=== PATIENT | male | born 1970 | race American Indian/Alaskan Native ===

== ENCOUNTER 2017-10-21 12:58 | Emergency (ER) | payer MEDICAID ==
[2017-10-21 13:36] VITALS: BMI 30.7
[2017-10-21 13:57] VITALS: BP 135/78
--- NOTE | 2017-10-21 13:59 | ED PDOC ---
Arrival/HPI - General Chief Complaint: Back Pain Time Seen by Provider: 10/21/17 13:36 Historian: Patient - History of Present Illness Narrative History of Present Illness (Text): 10/21/17 13:55 46 yo male w/PMHx of HTN, asthma, L-spine herniated disc , chronic lower back pain, come in for evaluation of left sided lower back pain gradually worsen for past 5 months. Pt reports, pain is left sided lower back radiating down to Left lateral thigh, Left foot, worse with movement. Pt admits, under pain management care Dr. Luc Abreu, receives cortisone injection without improvement. Pt admits, w as sent to ED by PMD for further evaluation of chronic lower back. Pt admits, never had MRI of L-spine done. Otherwise, pt denies recent trauma or injury, fever, chills, headache, dizziness, CP, SOB, dyspnea, diaphoresis, abd. pain, UTI, saddle anesthesia, incontinence, denies new weakness, sensory or vascular deficits to B/L LEs. Ambulate to Ed w/baseline gait, assistance of cane, not in any apparent distress. PMD:Radha Newby Past Medical History - Provider Review Nursing Documentation Reviewed: Yes - Travel History Have you recently traveled outside [place] w/in the past 3 mons?: No - Tetanus Immunization Tetanus Immunization: Unknown - Cardiac Hx Hypertension: Yes - Pulmonary Hx Asthma: Yes - Neurological Hx Neurological Disorder: No - HEENT Hx HEENT Disorder: No - Renal Hx Renal Disorder: No - Endocrine/Metabolic Hx Diabetes Mellitus Type 2: Yes - Hematological/Oncological Hx Blood Disorders: No - Integumentary Hx Dermatological Disorder: No - Musculoskeletal/Rheumatological Hx Musculoskeletal Disorders: No - Gastrointestinal Hx Gastrointestinal Disorders: No - Genitourinary/Gynecological Hx Genitourinary Disorders: No - Psychiatric Hx Psychophysiologic Disorder: No Hx Substance Use: No - Surgical History Other/Comment: sx left arm, left leg Family/Social History - Physician Review Nursing Documentation Reviewed: Yes Family/Social History: No Known Family HX Smoking Status: Never Smoked Hx Alcohol Use: No Hx Substance Use: No Allergies/Home Meds Allergies/Adverse Reactions: Allergies shellfish derived Allergy (Verified 10/21/17 13:36) ANAPHYLAXIS Review of Systems - Review of Systems Constitutional: Normal Eyes: Normal ENT: Normal Respiratory: Normal Cardiovascular: Normal Gastrointestinal: Normal Genitourinary Male: Normal Musculoskeletal: Back Pain Skin: Normal Neurological: Normal Endocrine: Normal Hemo/Lymphatic: Normal Psychiatric: Normal Physical Exam Vital Signs Reviewed: Yes Vital Signs Temp Pulse Resp BP Pulse Ox 10/21/17 16:58 98.3 F 85 18 99 10/21/17 16:16 98.0 F 80 19 97 10/21/17 13:57 98.2 F 81 18 135/78 97 Temperature: Afebrile Blood Pressure: Normal Pulse: Regular Respiratory Rate: Normal Appearance: Positive for: Well-Appearing, Non-Toxic, Comfortable Pain Distress: Moderate Mental Status: Positive for: Alert and Oriented X 3 - Systems Exam Head: Present: Normocephalic Conjunctiva: Present: Normal Mouth: Present: Moist Mucous Membranes, Normal Lips. No: Drooling Neck: Present: Trachea Midline. No: MIDLINE TENDERNESS, JVD Respiratory/Chest: Present: Clear to Auscultation, Good Air Exchange. No: Respiratory Distress, Accessory Muscle Use Cardiovascular: Present: Regular Rate and Rhythm, Normal S1, S2. No: Murmurs Abdomen: No: Tenderness, Distention, Peritoneal Signs, Rebound, Guarding Back: Present: Paraspinal Tenderness (diffuse left sided with moderate muscle spasm), Pain with Leg Raise (Right (+) at 60 degrees, left (+) at 30 degrees.). No: CVA Tenderness, Midline Tenderness Upper Extremity: Present: Normal Inspection, Normal ROM, NORMAL PULSES. No: Deformity Lower Extremity: Present: NORMAL PULSES, Normal ROM, Neurovascularly Intact, Capillary Refill < 2 s. No: Edema, CALF TENDERNESS, Tenderness, Swelling, Deformity Neurological: Present: GCS=15, Speech Normal, Motor Func Grossly Intact, Normal Sensory Function, Norm Deep Tendon Reflexes Skin: Present: Warm, Dry, Normal Color. No: Rashes Psychiatric: Present: Alert, Oriented x 3 Medical Decision Making ED Course and Treatment: 10/21/17 At 15:49, case discussed with and imaging results review and discussed. Confirmed and reviewed by my at [facility], pt receives monthly supply Endocet, last rx was given on 10/15/17 for 30 days. On re-evaluation, pt is afebrile, hemodynamicaly stable. Non-toxic. Ambulatory in Ed with stable gait. Neck: Supple. Lungs: CTA B/L, BS equal B/L Abd: benign, (-) guarding, (-) rebound back: (-) CVA tenderness. Neurologicaly intact. L-spine xray review and appears normal. Pt has clinical findings c/w Right sided lumbar radiculopathy. Pt advised. ref. to f/u with PMD, Pain management in 2-3 days for re-evaluation and further treatment return to Ed if any worsening or new changes. At 15:58, case discussed with as well, results review. Discharges with outpt MRI of L-spine and surgery consult recommend. - Lab Interpretations Lab Results: 10/21/17 15:36 10/21/17 15:36 Lab Results 10/21/17 15:36: Urine Color Yellow, Urine Appearance Clear, Urine pH 6.0, Ur Specific [place] 1.015, Urine Protein Negative, Urine Glucose (UA) Negative, Urine Ketones Negative, Urine Blood Negative, Urine Nitrate Negative, Urine Bilirubin Negative, Urine Urobilinogen 0.2, Ur Leukocyte Esterase Negative 10/21/17 15:36: Urine Opiates Screen Negative, Urine Methadone Screen Negative, Ur Barbiturates Screen Negative, Ur Phencyclidine Scrn Negative, Ur Amphetamines Screen Negative, U Benzodiazepines Scrn Negative, U Oth Cocaine Metabols Positive H, U Cannabinoids Screen Negative 10/21/17 15:36: Sodium 147, Potassium 4.6, Chloride 101, Carbon Dioxide 33, Anion Gap 18, BUN 7, Creatinine 0.9, Est GFR ( Amer) > 60, Est GFR (Non- Af Amer) > 60, Random Glucose 110, Calcium 10.4, Total Bilirubin 0.5, AST 42, ALT 57 H, Alkaline Phosphatase 47, Total Protein 8.1, Albumin 4.6, Globulin 3.6 , Albumin/Globulin Ratio 1.3 10/21/17 15:36: PT 12.1, INR 1.03, APTT 34.2 10/21/17 15:36: WBC 5.3, RBC 4.33, Hgb 13.7 L, Hct 38.9 L, MCV 89.8, MCH 31.6, MCHC 35.2, RDW 13.6, Plt Count 322, MPV 9.4, Gran % 55.1, Lymph % (Auto) 34.1, [place] % (Auto) 7.3 H, Eos % (Auto) 2.6, Baso % (Auto) 0.9, Gran # 2.94, Lymph # ( Auto) 1.8, [place] # (Auto) 0.4, Eos # (Auto) 0.1, Baso # (Auto) 0.05 - RAD Interpretation Radiology Orders: 10/21/17 13:45 LUMBAR SPINE W/O CONTRAST [CT] Stat PROCEDURE: CT Lumbar Spine without contrast HISTORY: lEFT SIDE RADICULOPATHY COMPARISON: None. TECHNIQUE: Axial computed tomography images were obtained of the lumbar spine without the use of intravenous contrast. Coronal and sagittal reformatted images were created and reviewed. Radiation dose: Total exam DLP = 634 mGy-cm. This CT exam was performed using one or more of the following dose reduction techniques: Automated exposure control, adjustment of the mA and/or kV according to patient size, and/or use of iterative reconstruction technique. FINDINGS: VERTEBRAE: Unremarkable. No fracture. Normal alignment. DISCS/SPINAL CANAL/NEURAL FORAMINA: L1-2: Unremarkable. L2-3: Unremarkable. L3-4: Unremarkable. L4-5: Unremarkable. L5-S1: Unremarkable. PARASPINAL SOFT TISSUES: Unremarkable. OTHER FINDINGS: None. IMPRESSION: Unremarkable CT of Lumbar Spine. - Medication Orders Current Medication Orders: Discontinued Medications Diazepam (Valium) 5 mg PO STAT STA PRN Reason: Protocol Stop: 10/21/17 13:47 Last Admin: 10/21/17 15:41 Dose: 5 mg Ketorolac Tromethamine (Toradol) 30 mg IVP STAT STA Stop: 10/21/17 13:47 Last Admin: 10/21/17 15:40 Dose: 30 mg MAR Pain Assessment Document 10/21/17 15:40 CAST (Rec: 10/21/17 15:40 CAST [id number]) Pain Reassessment Is this a pain reassessment? No Sleep Is patient sleeping during reassessment? No Presence of Pain Presence of Pain Yes Pain Scale Used Pain Scale Used Numeric Location Pain Location Body Site Back Description Description Constant Intensity of Pain at present 7 Pain Behavior Facial Grimacing Alleviating Factors/Management Medication Techniques Alleviating Factors Medication IVP Administration Document 10/21/17 15:40 [email or web address] (Rec: 10/21/17 15:40 CAST [id number]) Charges for Administration # of IVP Administrations 1 Methylprednisolone (Solu-Medrol) 125 mg IVP STAT STA Stop: 10/21/17 13:47 Last Admin: 10/21/17 15:40 Dose: 125 mg IVP Administration Document 10/21/17 15:40 [email or web address] (Rec: 10/21/17 15:40 [email or web address] [id number]) Charges for Administration # of IVP Administrations 1 Disposition/Present on Arrival - Present on Arrival Any Indicators Present on Arrival: No History of DVT/PE: No History of Uncontrolled Diabetes: No Urinary Catheter: No History of Decub. Ulcer: No History Surgical Site Infection Following: None - Disposition Have Diagnosis and Disposition been Completed?: Yes Diagnosis: Lumbar radiculopathy Disposition: HOME/ ROUTINE Disposition Time: 16:00 Patient Plan: Discharge Condition: STABLE Discharge Instructions (ExitCare): Radiculopathy (DC) Additional Instructions: Follow up with PMD, pain Management in 2-3 days for further evaluation and pain control, MRI of L-spine. Consider SPinal Surgery consult. return to Ed at any time if any worsening or new changes. Prescriptions: Gabapentin 300 mg PO TID #20 capsule Methocarbamol [Robaxin] 500 mg PO TID #14 tab Prednisone [Deltasone] 60 mg PO DAILY #9 tablet Referrals: Salvatore Graves MD [Primary Care Provider] - Follow up with primary Forms: [employer] (Amharic)
--- NOTE | 2017-10-21 14:23 | CT ---
PROCEDURE: CT Lumbar Spine without contrast HISTORY: lEFT SIDE RADICULOPATHY COMPARISON: None. TECHNIQUE: Axial computed tomography images were obtained of the lumbar spine without the use of intravenous contrast. Coronal and sagittal reformatted images were created and reviewed. Radiation dose: Total exam DLP = 634 mGy-cm. This CT exam was performed using one or more of the following dose reduction techniques: Automated exposure control, adjustment of the mA and/or kV according to patient size, and/or use of iterative reconstruction technique. FINDINGS: VERTEBRAE: Unremarkable. No fracture. Normal alignment. DISCS/SPINAL CANAL/NEURAL FORAMINA: L1-2: Unremarkable. L2-3: Unremarkable. L3-4: Unremarkable. L4-5: Unremarkable. L5-S1: Unremarkable. PARASPINAL SOFT TISSUES: Unremarkable. OTHER FINDINGS: None. IMPRESSION: Unremarkable CT of Lumbar Spine.
[2017-10-21 15:57] LABS: BASO # 0.05 K/mm3 (0.0-2.0); BASO % 0.9 % (0.0-3.0); EOS # 0.1 (0.0-0.7); EOS % 2.6 % (1.5-5.0); GRAN # 2.94 (1.4-6.5); GRAN % 55.1 % (50.0-68.0); HEMOGLOBIN 13.7 g/dL (14.0-18.0); LYMPH # 1.8 (1.2-3.4); LYMPH % 34.1 % (22.0-35.0); MEAN CELL VOLUME 89.8 fl (80.0-105.0); MEAN CORPUSCULAR HEMOGLOBIN 31.6 pg (25.0-35.0); MEAN CORPUSCULAR HGB CONC 35.2 g/dl (31.0-37.0); MEAN PLATELET VOLUME 9.4 fl (7.0-11.0); MONO # 0.4 (0.1-0.6); MONO % 7.3 % (1.0-6.0); RBC 4.33 10^6/uL (3.5-6.1); RED CELL DISTRIBUTION WIDTH 13.6 % (11.5-14.5); WHITE BLOOD COUNT 5.3 10^3/ul (4.5-11.0)
[2017-10-21 16:06] LABS: ALB/GLOB RATIO 1.3 (1.1-1.8); ALBUMIN 4.6 g/dL (3.0-4.8); ALT/SGPT 57 U/L (7-56); AST/SGOT 42 U/L (17-59); BLOOD UREA NITROGEN 7 mg/dL (7-21); CALCIUM 10.4 mg/dL (8.4-10.5); GFR AFRICAN-AMERICAN > 60; GFR NON-AFRICAN AMERICAN > 60
[2017-10-21 16:07] LABS: INR 1.03 (0.93-1.08); PARTIAL THROMBOPLASTIN TIME 34.2 Seconds (25.1-36.5); PROTHROMBIN TIME 12.1 SECONDS (9.4-12.5)
[2017-10-21 16:26] LABS: BARBITURATES, UR NEGATIVE (NEGATIVE); BENZODIAZEPINES, UR NEGATIVE (NEGATIVE); OPIATES, UR NEGATIVE (NEGATIVE); PHENCYCLIDINE, UR NEGATIVE (NEGATIVE)
[2017-10-21 16:36] LABS: URINE BILIRUBIN NEGATIVE (NEGATIVE); URINE BLOOD NEGATIVE (NEGATIVE); URINE GLUCOSE (UA) NEGATIVE (NEGATIVE); URINE LEUKOCYTE ESTERASE NEGATIVE Leu/uL (NEGATIVE); URINE PROTEIN NEGATIVE mg/dL (<30 mg/dL); URINE UROBILINOGEN 0.2 E.U./dL (<1 E.U./dL)
[2017-10-21 16:39] LABS: URINE APPEARANCE CLEAR (CLEAR); URINE COLOR YELLOW (YELLOW)
[2017-10-21 16:58] VITALS: PULSE 85; RESP 18; TEMP 98.3; O2SAT 99
== END 2017-10-21 16:58 | disposition home or self-care (01) ==
LOC: ED 12:58 → MERGE 12:58 → ED 16:58
DX: M54.16 Radiculopathy, lumbar region (principal); I10 Essential (primary) hypertension; E11.9 Type 2 diabetes mellitus without complications
CPT/HCPCS: 72131; 80053; 80324; 80345; 80346; 80349; 80353; 80358; 80361; 81003; 83992; 85025; 85610; 85730; 96374; 96375; 99283; J1885; J2930